=== PATIENT | male | born 1975 | race American Indian/Alaskan Native ===

== ENCOUNTER 2021-10-29 11:07 | Emergency (ER) | payer SELFPAY ==
[2021-10-29] MEDS ORDERED: ASPIRIN 325 MG TAB PO ONE (11:18)
--- NOTE | 2021-10-29 11:47 | XRay Report ---
CHEST 2 VIEWS INDICATION / CLINICAL INFORMATION: chest pain. COMPARISON: None available. FINDINGS: SUPPORT DEVICES: None. HEART / MEDIASTINUM: No significant abnormality. LUNGS / PLEURA: No significant pulmonary or pleural abnormality. No pneumothorax. ADDITIONAL FINDINGS: No significant additional findings. IMPRESSION: 1. No acute findings. Signer Name: Brain Bhandari MD Signed: 10/29/2021 11:42 AM Workstation Name: [id number]
[2021-10-29] MEDS ORDERED: cloNIDine 0.1 MG TAB PO ONE (12:05)
--- NOTE | 2021-10-29 12:09 | Emergency Department Report ---
ED Chest Pain HPI - General Chief Complaint: Chest Pain Stated Complaint: CHEST PAIN,SOB Time Seen by Provider: 10/29/21 11:53 Source: patient, old records reviewed (No previous record available) Mode of arrival: Ambulatory Limitations: No Limitations - History of Present Illness Initial Comments: 46-year-old male with a past medical history of obesity, hypertension, and GERD presents to the hospital complaining of moderate sharp left-sided chest pain radiating to the left shoulder that started last night. Pain lasted for several hours and improved at 4 AM. Associated symptoms include shortness of breath and lightheadedness. He denies nausea, vomiting, or diaphoresis. Pain was improved but persistent this a.m. so he came to the ED for evaluation. Patient is currently pain-free and denies exertional chest pain or shortness of breath. He has been noncompliant with his hypertensive medication for the past 3 days because he has been "busy with the kids". He recently moved here from [place] on September 28 via private vehicle. He denies cough, fever, calf tenderness, leg edema, history of PE/DVT, or smoking. Last stress test was over 5 years ago. His mother had a heart transplant for unknown reason Current medications include hydrochlorothiazide 25 mg daily and Prilosec. Patient does not take an aspirin daily - Related Data Allergies Allergy/AdvReac Type Severity Reaction Status Date / Time No Known Allergies Allergy Verified 10/29/21 11:14 Heart Score - HEART Score History: Slightly suspicious EKG: Non-specific Age: 45-65 Risk factors: > 3 risk factors or hx of atherosclerotic disease Troponin: < normal limit HEART Score: 4 - EKG Read Time Time EKG Completed: 11:16 (1120) EKG Read Time: 11:20 ED Review of Systems ROS: Stated complaint: CHEST PAIN,SOB Other details as noted in HPI Comment: All other systems reviewed and negative ED Physical Exam - General Limitations: No Limitations - Other Other exam information: General: No acute distress Head: Atraumatic Eyes: normal appearance ENT: Moist mucous membranes Neck: Normal appearance, no midline tenderness Chest: Clear to auscultation bilaterally, chest wall nontender CV: Regular rate and rhythm Abdomen: Soft, normal bowel sounds, nontender, nondistended, no rebound or guarding Back: Normal inspection Extremity: Normal inspection, full range of motion, no calf tenderness or leg. No tenderness to left shoulder Neuro: Alert O x 3, no facial asymmetry, speech clear, no gross motor sensory deficit Psych: Appropriate behavior Skin: No rash ED Course Vital Signs 10/29/21 10/29/21 11:18 13:57 Temperature 98.6 F 98.4 F Pulse Rate 65 57 L Respiratory 16 18 Rate Blood Pressure 162/111 134/89 [Right] O2 Sat by Pulse 99 98 Oximetry - Consultations Consultation #1: 10/29/21 14:42 Case discussed with Jef Mcleod with cardiology and will evaluate patient 10/29/21 15:19 Cardiology came to the bedside to evaluate pain and states they will recommend inpatient stress test and echocardiogram work-up. Patient is agreeable to admission NABOR score - Nabor Score Age > 65: (0) No Aspirin use within the Past 7 Days: (0) No 3 or more CAD Risk Factors: (1) Yes 2 or more Angina events in past 24 hrs: (1) Yes Known CAD with more than 50% Stenosis: (0) No Elevated Cardiac Markers: (0) No ST Deviation Greater than 0.5mm: (0) No NABOR Score: 2 ED Medical Decision Making - Lab Data Result diagrams: 10/29/21 11:39 10/29/21 11:39 Lab Results 10/29/21 10/29/21 10/29/21 Range/Units 11:39 11:39 12:49 WBC 6.1 (4.5-11.0) K/mm3 RBC 4.88 (3.65-5.03) M/mm3 Hgb 15.6 H (11.8-15.2) gm/dl Hct 45.9 H (35.5-45.6) % MCV 94 (84-94) fl MCH 32 (28-32) pg MCHC 34 (32-34) % RDW 13.0 L (13.2-15.2) % Plt Count 198 (140-440) K/mm3 Lymph % (Auto) 38.8 H (13.4-35.0) % [place] % (Auto) 6.7 (0.0-7.3) % Eos % (Auto) 4.1 (0.0-4.3) % Baso % (Auto) 0.9 (0.0-1.8) % Lymph # (Auto) 2.4 (1.2-5.4) K/mm3 [place] # (Auto) 0.4 (0.0-0.8) K/mm3 Eos # (Auto) 0.3 (0.0-0.4) K/mm3 Baso # (Auto) 0.1 (0.0-0.1) K/mm3 Seg Neutrophils % 49.5 (40.0-70.0) % Seg Neutrophils # 3.0 (1.8-7.7) K/mm3 PT 13.1 (12.2-14.9) Sec. INR 0.89 (0.87-1.13) APTT 24.4 (24.2-36.6) Sec. D-Dimer < 135.00 (0-234) ng/mlDDU Sodium 141 (137-145) mmol/L Potassium 4.2 (3.6-5.0) mmol/L Chloride 103.1 (98-107) mmol/L Carbon Dioxide 25 (22-30) mmol/L Anion Gap 17 mmol/L BUN 14 (9-20) mg/dL Creatinine 0.9 (0.8-1.3) mg/dL Estimated GFR > 60 ml/min BUN/Creatinine Ratio 16 % Glucose 124 H (75-100) mg/dL Calcium 9.2 (8.4-10.2) mg/dL Total Bilirubin 0.40 (0.1-1.2) mg/dL AST 24 (5-40) units/L ALT 46 (7-56) units/L Alkaline Phosphatase 85 (35-129) units/L Troponin T < 0.010 (0.00-0.029) ng/mL Total Protein 7.6 (6.3-8.2) g/dL Albumin 4.6 (3.9-5) g/dL Albumin/Globulin Ratio 1.5 % 10/29/21 Range/Units 12:54 WBC (4.5-11.0) K/mm3 RBC (3.65-5.03) M/mm3 Hgb (11.8-15.2) gm/dl Hct (35.5-45.6) % MCV (84-94) fl MCH (28-32) pg MCHC (32-34) % RDW (13.2-15.2) % Plt Count (140-440) K/mm3 Lymph % (Auto) (13.4-35.0) % [place] % (Auto) (0.0-7.3) % Eos % (Auto) (0.0-4.3) % Baso % (Auto) (0.0-1.8) % Lymph # (Auto) (1.2-5.4) K/mm3 [place] # (Auto) (0.0-0.8) K/mm3 Eos # (Auto) (0.0-0.4) K/mm3 Baso # (Auto) (0.0-0.1) K/mm3 Seg Neutrophils % (40.0-70.0) % Seg Neutrophils # (1.8-7.7) K/mm3 PT (12.2-14.9) Sec. INR (0.87-1.13) APTT (24.2-36.6) Sec. D-Dimer (0-234) ng/mlDDU Sodium (137-145) mmol/L Potassium (3.6-5.0) mmol/L Chloride (98-107) mmol/L Carbon Dioxide (22-30) mmol/L Anion Gap mmol/L BUN (9-20) mg/dL Creatinine (0.8-1.3) mg/dL Estimated GFR ml/min BUN/Creatinine Ratio % Glucose (75-100) mg/dL Calcium (8.4-10.2) mg/dL Total Bilirubin (0.1-1.2) mg/dL AST (5-40) units/L ALT (7-56) units/L Alkaline Phosphatase (35-129) units/L Troponin T < 0.010 (0.00-0.029) ng/mL Total Protein (6.3-8.2) g/dL Albumin (3.9-5) g/dL Albumin/Globulin Ratio % - EKG Data -: EKG Interpreted by Sd EKG shows normal: sinus rhythm, ST-T waves (Lateral T wave inversions, no STEMI) Rate: normal - EKG Data When compared to previous EKG there are: previous EKG unavailable - Radiology Data Radiology results: report reviewed CHEST 2 VIEWS INDICATION / CLINICAL INFORMATION: chest pain. COMPARISON: None available. FINDINGS: SUPPORT DEVICES: None. HEART / MEDIASTINUM: No significant abnormality. LUNGS / PLEURA: No significant pulmonary or pleural abnormality. No pneumothorax. ADDITIONAL FINDINGS: No significant additional findings. IMPRESSION: 1. No acute findings. - Medical Decision Making 46-year-old male presents to hospital complaining of intermittent chest pain since last night. EKG has some nonspecific findings. Heart score 4. Troponin negative x2. D-dimer negative. 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 Patient treated in the ED with aspirin and clonidine with improvement in BP. patient will be admitted to hospital service for further. Cardiology has evaluated patient and plans to perform stress test and echo Patient signed out AGAINST MEDICAL ADVICE shortly after admission Critical Care Time: No Critical care attestation.: If time is entered above; I have spent that time in minutes in the direct care of this critically ill patient, excluding procedure time. ED Disposition Clinical Impression: Chest pain, HTN (hypertension), Noncompliance with medication regimen Disposition: LEFT AGAINST MEDICAL ADVICE Is pt being admited?: Yes Condition: Stable Instructions: Hypertension (ED) Referrals: PRIMARY CARE, [Primary Care Provider] - 3-5 Days Forms: AMA Form Time of Disposition: 15:30 (dr Randolph/hosp)
[2021-10-29 12:11] LABS: Basophils # (Auto) 0.1 K/mm3 (0.0-0.1); Basophils % (Auto) 0.9 % (0.0-1.8); Eosinophils # (Auto) 0.3 K/mm3 (0.0-0.4); Eosinophils % (Auto) 4.1 % (0.0-4.3); Hematocrit 45.9 % (35.5-45.6); Hemoglobin 15.6 gm/dl (11.8-15.2); Lymphocytes # (Auto) 2.4 K/mm3 (1.2-5.4); Lymphocytes % (Auto) 38.8 % (13.4-35.0); Mean Corpuscular HGB Conc 34 % (32-34); Mean Corpuscular Volume 94 fl (84-94); Monocytes # (Auto) 0.4 K/mm3 (0.0-0.8); Monocytes % (Auto) 6.7 % (0.0-7.3); Platelet Count 198 K/mm3 (140-440); Red Blood Count 4.88 M/mm3 (3.65-5.03)
[2021-10-29 12:26] LABS: Alanine Aminotransferase 46 units/L (7-56); Albumin 4.6 g/dL (3.9-5); BUN/Creatinine Ratio 16; Blood Urea Nitrogen 14 mg/dL (9-20); Calcium 9.2 mg/dL (8.4-10.2); Hemolysis Index 5
[2021-10-29 13:25] LABS: INR 0.89 (0.87-1.13)
[2021-10-29 13:26] LABS: Partial Thromboplastin Time 24.4 Sec. (24.2-36.6)
[2021-10-29 13:58] VITALS: BP 134/89
[2021-10-29] MEDS ORDERED: traMADol 50 MG TAB PO PRN (16:22)
[2021-10-29] MEDS ORDERED: MORPHINE 4 MG/1 ML INJ IV PRN (16:22)
[2021-10-29] MEDS ORDERED: ACETAMINOPHEN 325 MG TAB PO PRN ×2 (16:22)
[2021-10-29] MEDS ORDERED: oxyCODONE /ACETAMINOPHEN 5-325MG TAB PO PRN (16:22)
[2021-10-29] MEDS ORDERED: ONDANSETRON 4 MG/2 ML INJ IV PRN (16:22)
[2021-10-29] MEDS ORDERED: ALBUTEROL 2.5 MG/3 ML NEBU IH PRN (16:22)
--- NOTE | 2021-10-29 16:26 | Event Note ---
Date: 10/29/21 46 YO Male with Obesity, HTN, GERD, Metabolic Syndrome presents to ED for evaluation. Patient seen and evaluated in the emergency department. All lab and imaging studies reviewed. Patient found to have clinical symptoms consistent with angina with concomitant high risk of cardiac disease with a heart score: 4. Patient placed in observation status and admitted to telemetry and initiated on chest pain protocol. Patient left AMA prior to completion of work-up and initiation of diagnostic testing. General: No acute distress Head: Atraumatic Eyes: normal appearance ENT: Moist mucous membranes Neck: Normal appearance, no midline tenderness Chest: Clear to auscultation bilaterally, chest wall nontender CV: Regular rate and rhythm Abdomen: Soft, normal bowel sounds, nontender, nondistended, no rebound or guarding Back: Normal inspection Extremity: Normal inspection, full range of motion, no calf tenderness or leg. No tenderness to left shoulder Neuro: Alert O x 3, no facial asymmetry, speech clear, no gross motor sensory deficit Psych: Appropriate behavior Skin: No rash
[2021-10-29] MEDS ORDERED: ASPIRIN 81 MG TAB CHEW PO STA (16:30)
--- NOTE | 2021-10-29 16:35 | Consultation ---
History of Present Illness Consult date: 10/29/21 Requesting physician: JESENIA AVELAR History of present illness: 46-year-old male with a past medical history of hypertension who reports to the ED complaining of sharp left-sided chest pain that radiates to his shoulder and neck which started yesterday evening. Patient reports his symptoms started yesterday evening and continued until around 330 to 4 AM when they went away. Patient states he fell asleep and woke up and continued to have the pain and decided to come to the ED for evaluation. Patient reports that at home his blood pressure was elevated to 220/120. Patient reports that he is supposed to be taking amlodipine hydrochlorothiazide as an outpatient but has run out of his amlodipine for several days and has not been taking his hydrochlorothiazide for around 3 to 4 days due to being busy with recently [place] and busy with kids. Patient also reports some shortness of breath asso ciated with the chest pain. Of note patient's blood pressure on arrival to the ED was 160/111. Patient reports that the pain was relieved after getting his blood pressure controlled in the ED patient denies nausea vomiting, palpitations, diaphoresis, or lightheadedness. Patient is previously known to our practice. Cardiology is consulted for chest pain Past History Past Medical History: hypertension Past Surgical History: No surgical history Social history: no significant social history Family history: CAD, hypertension Medications and Allergies Allergies Allergy/AdvReac Type Severity Reaction Status Date / Time No Known Allergies Allergy Verified 10/29/21 11:14 Active Meds: Active Medications Acetaminophen (Acetaminophen 325 Mg Tab) 650 mg PO Q4H PRN PRN Reason: Pain MILD(1-3)/Fever >100.5/MIR Acetaminophen (Acetaminophen 325 Mg Tab) 650 mg PO Q6H PRN PRN Reason: Pain, Mild (1-3) Albuterol (Albuterol 2.5 Mg/3 Ml Nebu) 2.5 mg IH Q4HRT PRN PRN Reason: Shortness Of Breath Morphine Sulfate (Morphine 4 Mg/1 Ml Inj) 2 mg IV Q4H PRN PRN Reason: Pain , Severe (7-10) Ondansetron HCl (Ondansetron 4 Mg/2 Ml Inj) 4 mg IV Q8H PRN PRN Reason: Nausea And Vomiting Oxycodone/Acetaminophen (Oxycodone /Acetaminophen 5-325mg Tab) 1 tab PO Q16H PRN PRN Reason: Pain, Moderate (4-6) Sodium Chloride (Sodium Chloride 0.9% 10 Ml Flush Syringe) 10 ml IV BID DEL Sodium Chloride (Sodium Chloride 0.9% 10 Ml Flush Syringe) 10 ml IV PRN PRN PRN Reason: LINE FLUSH Sodium Chloride (Sodium Chloride 0.9% 10 Ml Flush Syringe) 10 ml IV PRN PRN PRN Reason: LINE FLUSH Tramadol HCl (Tramadol 50 Mg Tab) 50 mg PO Q6H PRN PRN Reason: Pain, Moderate (4-6) Review of Systems Constitutional: no weight loss, no weight gain, no fever Ears, nose, mouth and throat: no nasal discharge, no sinus pressure, no sinus pain Cardiovascular: chest pain, shortness of breath, no orthopnea, no palpitations, no rapid/irregular heart beat, no edema, no syncope Respiratory: shortness of breath, no cough, no cough with sputum, no excessive sputum Gastrointestinal: no abdominal pain, no nausea, no vomiting Musculoskeletal: neck pain, shooting arm pain Integumentary: no rash, no pruritis, no redness Neurological: no head injury, no transient paralysis Psychiatric: no anxiety, no memory loss Endocrine: no cold intolerance, no heat intolerance Hematologic/Lymphatic: no easy bruising, no easy bleeding Physical Examination Vital Signs Temp Pulse Resp BP Pulse Ox 98.6 F 65 16 162/111 99 10/29/21 11:18 10/29/21 11:18 10/29/21 11:18 10/29/21 11:18 10/29/21 11:18 General appearance: no acute distress HEENT: Positive: PERRL Neck: Positive: trachea midline Cardiac: Positive: Reg Rate and Rhythm Lungs: Positive: clear to auscultation, Normal Breath Sounds Neuro: Positive: Grossly Intact Abdomen: Positive: Soft, Active Bowel Sounds Skin: Negative: Rash, Suspicious Lesions, Ulceration Extremities: Present: upper extr. pulses. Absent: edema Results 10/29/21 11:39 10/29/21 11:39 Cardiac Enzymes 10/29/21 Range/Units 11:39 AST 24 (5-40) units/L Coagulation 10/29/21 Range/Units 12:49 PT 13.1 (12.2-14.9) Sec. INR 0.89 (0.87-1.13) APTT 24.4 (24.2-36.6) Sec. CBC 10/29/21 Range/Units 11:39 WBC 6.1 (4.5-11.0) K/mm3 RBC 4.88 (3.65-5.03) M/mm3 Hgb 15.6 H (11.8-15.2) gm/dl Hct 45.9 H (35.5-45.6) % Plt Count 198 (140-440) K/mm3 Lymph # (Auto) 2.4 (1.2-5.4) K/mm3 [place] # (Auto) 0.4 (0.0-0.8) K/mm3 Eos # (Auto) 0.3 (0.0-0.4) K/mm3 Baso # (Auto) 0.1 (0.0-0.1) K/mm3 Comprehensive Metabolic Panel 10/29/21 Range/Units 11:39 Sodium 141 (137-145) mmol/L Potassium 4.2 (3.6-5.0) mmol/L Chloride 103.1 (98-107) mmol/L Carbon Dioxide 25 (22-30) mmol/L BUN 14 (9-20) mg/dL Creatinine 0.9 (0.8-1.3) mg/dL Glucose 124 H (75-100) mg/dL Calcium 9.2 (8.4-10.2) mg/dL AST 24 (5-40) units/L ALT 46 (7-56) units/L Alkaline Phosphatase 85 (35-129) units/L Total Protein 7.6 (6.3-8.2) g/dL Albumin 4.6 (3.9-5) g/dL - Imaging and Cardiology Echo: pending EKG interpretations - Telemetry EKG Rhythm: Sinus Rhythm - EKG Sinus rhythms and dysrhythmias: sinus rhythm Repolarization changes or abnormalities: nonspecific abnormality, ST segment, and/or T wave Assessment and Plan 46-year-old male with a past medical history of hypertension who reports to the ED complaining of sharp left-sided chest pain that radiates to his shoulder and neck which started yesterday evening. Hypertensive urgency Obesity Medical noncompliance Plan EKG shows sinus 60 with nonspecific T abnormalities. No acute ischemic changes. Troponins negative x2. AMI ruled out Patient currently chest pain-free however due to patient's symptoms and family history of cardiac issues recommend admitting for ischemic eval Patient for stress test in the a.m. NPO after midnight Echo pending Resume outpatient amlodipine and hydrochlorothiazide Discussed plan of care with patient who agrees and verbalized understanding Patient seen in conjunction with Dr. Gutierrez who agrees with this plan of care - Patient Problems (1) Chest pain Status: Acute (2) HTN (hypertension) Status: Acute (3) Noncompliance with medication regimen Status: Acute
[2021-10-30] MEDS ORDERED: amLODIPine 10 MG TAB PO SCH (10:00)
[2021-10-30] MEDS ORDERED: hydroCHLOROthiazide 25 MG TAB PO SCH (10:00)
--- NOTE | 2021-10-30 10:20 | Electrocardiograph Report ---
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
== END 2021-10-29 16:12 | disposition left against medical advice (07) ==
LOC: ED 11:07
DX: R07.9 Chest pain, unspecified (principal); I10 Essential (primary) hypertension; Z91.14 Patient's other noncompliance with medication regimen
CPT/HCPCS: 36415; 71046; 80053; 84484; 85025; 85379; 85610; 85730; 93005; 93010; 99284